=== PATIENT | female | born 1945 | race Caucasian/White ===

== ENCOUNTER → 2016-12-15 | Outpatient (CLI) | payer MEDICARE, OTHER ==
[~2016-12-15] MED LIST: AMLO10TA2 PO; AMLO5TAB2 PO; CELE-63 PO; ESTR0.5T3 PO; ESTR42.52; FLUO20CA25 PO; FLUO40CA; HYDR-3714 PO; HYDR1TAB PO; IRBE75TA31; METO-270 PO; METO25TA2 PO; NITR100C3 PO; PRED20TA PO; ZLP5T PO; ZOLP10TA5 PO
--- OUTSIDE RECORDS SUMMARY | 2016-12-15 13:27 | XMS REPORT | Continuity of Care Document ---
Author Author [facility] Organization [facility] Address Unknown Phone Unavailable Allergies Active Description Code Type Severity Reaction Onset Reported/Identified Relationship to Patient Clinical Status Yes levofloxacin [id number] Drug Allergy Mild N/A 04/07/2009 Yes Sulfa (Sulfonamide Antibiotics) [id number] Drug Allergy Mild N/A 04/07/2009 Medications Problems Date Dx Coded Attending Type Code Diagnosis Diagnosed By 04/07/2015 HENNA HELLER, ALEX T Ot 272.0 04/07/2015 HENNA HELLER, ALEX T Ot 401.9 04/07/2015 HENNA HELLER, ALEX T Ot 427.89 04/07/2015 HENNA HELLER, ALEX T Ot 786.50 04/07/2015 ALEX AGUILLON MD T Ot 786.59 09/30/2015 JA PERKINS DO Ot Z12.39 10/24/2015 JA PERKINS DO Ot Z12.31 Procedures Results Encounters ACCT No. Visit Date/Time Discharge Status Pt. Type Provider Facility Loc./Unit Complaint [id number] 09/18/2015 09:52:00 2014 23:59:59 CLS Outpatient JA PERKINS DO [facility] RAD [id number] 04/07/2015 17:31:00 2014 20:10:00 DIS Emergency ALEX AGUILLON MD [facility] ER [id number] 06/21/2014 08:40:00 2013 23:59:59 CLS Outpatient [id number] 01/02/2014 10:23:00 2013 23:59:59 CLS Outpatient [id number] 12/26/2013 08:34:00 2013 23:59:59 CLS Outpatient [id number] 04/06/2013 08:16:00 2012 14:05:00 DIS Outpatient [id number] 03/31/2013 10:16:00 2012 23:59:59 CLS Outpatient [id number] 03/30/2013 11:29:00 2012 23:59:59 CLS Outpatient [id number] 03/02/2013 10:23:00 2012 23:59:59 CLS Outpatient
--- NOTE | 2016-12-15 18:35 | Diagnostic Imaging Report ---
Digital mammogram bilateral screening The study was compared to the prior exams of 09/18/15, 06/21/14 and 03/02/13. At this time, there are no current complaints. The current study was also evaluated with a Computer Aided Detection (CAD) system. FINDINGS: The fibroglandular tissue in both breasts is dense. This does limit the sensitivity of this exam. Overall, there does not appear to have been any significant change when compared to the prior study. No primary or secondary sign of malignancy is noted. IMPRESSION: There is no radiographic evidence for malignancy. ACR BI-RADS Category 1: Negative. Result letter will be mailed to the patient. Note: At least 10% of breast cancer is not imaged by mammography. Dictated by: Dictated on workstation # [id number]
== END ==
LOC: RAD 10:03
PROVIDERS: ATTEND Family Medicine
DX: Z12.31 Encounter for screening mammogram for malignant neoplasm of breast (principal)
CPT/HCPCS: 77067

== ENCOUNTER → 2016-12-22 | Outpatient (CLI) | payer MEDICARE, OTHER ==
[~2016-12-22] MED LIST changes: +CATHETER FLUSH 10 ML SYR IV PRN; +IOHEXOL 350 MG/ML 100 ML (OMNIPAQUE 350) VIAL IV ONE; +NS 100 ML (IVPB) BAG IV ONE
--- OUTSIDE RECORDS SUMMARY | 2016-12-22 07:50 | XMS REPORT | Continuity of Care Document ---
Author Author [facility] Organization [facility] Address Unknown Phone Unavailable Allergies Active Description Code Type Severity Reaction Onset Reported/Identified Relationship to Patient Clinical Status Yes levofloxacin [id number] Drug Allergy Mild N/A 04/07/2009 Yes Sulfa (Sulfonamide Antibiotics) [id number] Drug Allergy Mild N/A 04/07/2009 Medications Problems Date Dx Coded Attending Type Code Diagnosis Diagnosed By 04/06/2013 CHARU HELLER, SAHARA Kee Ot 702.19 OTHER SEBORRHEIC KERATOSIS 04/07/2015 HENNA HELLER, ALEX Salguero Ot 272.0 PURE HYPERCHOLESTEROLEM 04/07/2015 ALEX AGUILLON MD Ot 401.9 HYPERTENSION NOS 04/07/2015 HENNA HELLER, ALEX Salguero Ot 427.89 CARDIAC DYSRHYTHMIAS NEC 04/07/2015 ALEX AGUILLON MD Ot 786.50 CHEST PAIN NOS 04/07/2015 HENNA HELLER, ALEX Salguero Ot 786.59 CHEST PAIN NEC 09/30/2015 JA PERKINS DO Ot Z12.39 10/24/2015 JA PERKINS DO Ot Z12.31 12/15/2016 JA PERKINS DO Ot 518.89 OTHER DISEASES OF LUNG, NEC 12/15/2016 JA PERKINS DO Ot V76.12 OTH SCREEN MAMMO-MALIGN NEOPLASM OF PARUL 12/15/2016 CHARU HELLER, SAHARA Kee Ot 709.9 SKIN DISORDER NOS 12/15/2016 CHARU HELLER, SAHARA Kee Ot V72.83 EXAM PRE-OPERATIVE NEC 12/15/2016 CHARU HELLER, SAHARA Kee Ot V74.8 SCREEN-BACTERIAL DIS NEC 12/15/2016 JA PERKINS DO Ot 786.6 CHEST SWELLING/MASS/LUMP 12/15/2016 JA PERKINS DO Ot 793.11 SOLITARY PULMONARY NODULE 12/15/2016 JA PERKINS DO Ot 793.11 SOLITARY PULMONARY NODULE 12/15/2016 MADDIE AVERY, JA Garcia Ot 793.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 Visit Date/Time Discharge Status Pt. Type Provider Facility Loc./Unit Complaint [id number] 09/18/2015 09:52:00 2014 23:59:59 CLS Outpatient PARULJA WHITLOCK DO [facility] RAD ROUTINE SCREENING [id number] 04/07/2015 17:31:00 2014 20:10:00 DIS Emergency HENNA HELLER, ALEX Salguero [facility] ER R SIDE CHEST-BACK PAIN [id number] 06/21/2014 08:40:00 2013 23:59:59 CLS Outpatient JA PERKINS DO [facility] RAD SCREENING,OSTEOPOROSIS [id number] 01/02/2014 10:23:00 2013 23:59:59 CLS Outpatient JA PERKINS DO [facility] RAD PULMONARY NODULE [id number] 12/26/2013 08:34:00 2013 23:59:59 CLS Outpatient JA PERKINS DO [facility] RAD 6 MONTH F/U PULMONARY NODULE [id number] 04/06/2013 08:16:00 2012 14:05:00 DIS Outpatient [facility]U [facility]LL[facility] QUADR[facility] AND BACK [id number] 03/31/2013 10:16:00 2012 23:59:59 CLS Outpatient JA PERKINS DO [facility] RAD FOLLOW UP ABNORMAL CT SCAN [id number] 03/30/2013 11:29:00 2012 23:59:59 CLS Outpatient SAHARA BOX MD [facility] PREOP SKIN LESIONS ON BACK AND UPPER RIGHT QUADRANT [id number] 03/02/2013 10:23:00 2012 23:59:59 CLS Outpatient JA PERKINS DO [facility] RAD HX OF SPOT ON LUNG LAST 6 MO ,SCREENING MAMMOGRAM [id number] 12/15/2016 10:03:00 ACT Outpatient JA PERKINS DO [facility] RAD SCREENING [id number] 12/15/2016 10:02:00 Document Registration
--- NOTE | 2016-12-22 12:38 | Diagnostic Imaging Report ---
PROCEDURE: CT chest with contrast only. TECHNIQUE: Multiple contiguous axial images were obtained through the chest after administration of intravenous contrast. INDICATION: Pulmonary nodule followup. CONTRAST: 75 mL of Omnipaque 350 is administered intravenously. FINDINGS: There is a pulmonary nodule measuring 2.7 x 2.6 cm in the left lower lobe. Inferior to the nodule, there is a small area of atelectasis or scarring, which could correspond to nodularity seen on 04/07/2015 exam. It is uncertain if this has developed at the site of the prior abnormality or adjacent to it. There is a satellite nodule measuring 8 mm at the level of the left hilum within the left lower lobe along the major fissure. There are calcified granulomas in the left hilum with some adjacent soft tissue component suggestive of adjacent pathologic lymphadenopathy of relatively small size. Larger lymph nodes are seen in the right paratracheal station measuring 1.8 x 2.8 x 3.3 cm. There is also an 8 mm prevascular lymph node and an indeterminate partially calcified infracarinal lymph node measuring 1.3 cm. This is not well from the esophagus but appears to be along its right side. The right lung demonstrates no significant consolidation, mass, or suspicious nodule. Calcified granuloma in the anterior aspect of the right lung base is seen. The pulmonary artery is slightly dilated which may correlate with pulmonary hypertension. The main pulmonary artery is 3.9 cm in caliber. The thoracic aorta is normal in caliber. The heart size is normal. No pericardial effusion. Cholecystectomy clips are seen in the upper abdomen. No adrenal nodule is seen. Mild degenerative changes in the thoracic spine noted. IMPRESSION: Suspicious 2.7 cm pulmonary nodule in the left lower lobe associated with a satellite nodule more anteriorly and superiorly in the left lower lobe and mediastinal lymphadenopathy including relatively large nodes in the right paratracheal station concerning for lung cancer. These lymph nodes may be accessible by bronchoscopy for tissue diagnosis. The findings were called and discussed with Dr. Marcum by Dr. Mcconnell at the time of dictation. Dictated by: Dictated on workstation # [id number]
== END ==
LOC: RAD 07:48
PROVIDERS: ATTEND Family Medicine
DX: R91.1 Solitary pulmonary nodule (principal)
CPT/HCPCS: 71260

== ENCOUNTER → 2017-01-05 | Outpatient (CLI) | payer MEDICARE, OTHER ==
[~2017-01-05] MED LIST changes: -CATHETER FLUSH 10 ML SYR IV PRN; -IOHEXOL 350 MG/ML 100 ML (OMNIPAQUE 350) VIAL IV ONE; -NS 100 ML (IVPB) BAG IV ONE
--- OUTSIDE RECORDS SUMMARY | 2017-01-05 12:39 | XMS REPORT | Continuity of Care Document ---
Author Author [facility] Organization [facility] Address Unknown Phone Unavailable Allergies Active Description Code Type Severity Reaction Onset Reported/Identified Relationship to Patient Clinical Status Yes levofloxacin [id number] Drug Allergy Mild N/A 04/07/2009 Yes Sulfa (Sulfonamide Antibiotics) [id number] Drug Allergy Mild N/A 04/07/2009 Medications Problems [...] 518.89 OTHER DISEASES OF LUNG, NEC 12/15/2016 AJ PERKINS DO Ot V76.12 OTH SCREEN MAMMO-MALIGN [...] DO Ot 793.11 SOLITARY PULMONARY NODULE 12/15/2016 [facility] Ot 793.11 SOLITARY PULMONARY NODULE 12/15/2016 [facility] Ot 733.90 BONE CARTILAGE DIS NOS 12/15/2016 MADDIE AVERY, JA Garcia Ot V76.12 OTH SCREEN MAMMO-MALIGN NEOPLASM OF PARUL 12/15/2016 MADDIE DO, JA Garica Ot Z12.31 ENCNTR SCREEN MAMMOGRAM FOR MALIGNANT NE 12/15/2016 MADDIE AVERY, JA Garcia Ot Z12.31 ENCNTR SCREEN MAMMOGRAM FOR MALIGNANT NE 12/16/2016 [facility] JA Garcia Ot Z12.31 ENCNTR SCREEN MAMMOGRAM FOR MALIGNANT NE 12/23/2016 MADDIE AVERY, JA Garcia Ot R91.1 SOLITARY PULMONARY NODULE Procedures Results Encounters ACCT No. Visit Date/Time Discharge Status Pt. Type Provider Facility Loc./Unit Complaint [id number] 09/18/2015 09:52:00 2014 23:59:59 CLS Outpatient MADDIE DO JA Jose [facility] RAD ROUTINE SCREENING [id number] 04/07/2015 17:31:00 2014 20:10:00 DIS Emergency HENNA HELLER, ALEX Salguero [facility] ER R SIDE CHEST-BACK PAIN [id number] 06/21/2014 08:40:00 2013 23:59:59 CLS Outpatient MADDIE AVERY JA Jose [facility] RAD SCREENING,OSTEOPOROSIS [id number] 01/02/2014 10:23:00 2013 23:59:59 CLS Outpatient MADDIE DO JA Jose [facility] RAD PULMONARY NODULE [id number] 12/26/2013 08:34:00 2013 23:59:59 CLS Outpatient JA PERKINS DO [facility] RAD 6 MONTH F/U PULMONARY NODULE [id number] 04/06/2013 08:16:00 2012 14:05:00 DIS Outpatient CHARU HELLER, SAHARA Kee [facility] SDC SKIN LESIONS ON RIGHT UPPER QUADRANT AND BACK [id number] 03/31/2013 10:16:00 2012 23:59:59 CLS Outpatient JA PERKINS DO [facility] RAD FOLLOW UP ABNORMAL CT SCAN [id number] 03/30/2013 11:29:00 2012 23:59:59 CLS Outpatient CHARU HELLER, SAHARA Kee [facility] PREOP SKIN LESIONS ON BACK AND UPPER RIGHT QUADRANT [id number] 03/02/2013 10:23:00 2012 23:59:59 CLS Outpatient JA PERKINS DO [facility] RAD HX OF SPOT ON LUNG LAST 6 MO ,SCREENING MAMMOGRAM [id number] 12/22/2016 07:48:00 ACT Outpatient JA PERKINS DO [facility] RAD PULMONARY NODULE LT LUNG BASE [id number] 12/15/2016 10:03:00 ACT Outpatient JA PERKINS DO [facility] RAD SCREENING [id number] 12/15/2016 10:02:00 Document Registration
--- NOTE | 2017-01-07 10:01 | Diagnostic Imaging Report ---
EXAMINATION: PET-CT. TECHNIQUE: Serum glucose level at the time of the study is: 95 mg/dL. 12.4 mCi of FDG was administered intravenously followed by obtaining PET images with corresponding noncontrast CT scan images. The CT scan was performed for anatomic correlation and attenuation correction and was not performed according to the diagnostic protocol of the areas covered. The scan was performed from the head to mid thighs. INDICATION: Left lower lobe lung mass. FINDINGS: There is a 2.4-cm left lower lobe nodule with intense hypermetabolism and maximum SUV of 13.7. This is associated with prominent left hilar hypermetabolic lymph nodes with maximum SUV of 11.6. There are also prominent mediastinal lymph nodes in the infracarinal and right paratracheal locations with maximum SUV of 11.4. There are also superior mediastinal hypermetabolic lymph nodes most prominent on the prevascular space abutting the anterior and left side aspect of the trachea. There is also a right supraclavicular hypermetabolic lymph node with SUV of 10.5 and measuring 1.2 cm in size. In the head and in the upper cervical chain, no suspicious hypermetabolism is seen. There is symmetric FDG uptake in the brain. In the abdomen and pelvis there is expected urinary tract excretion of the tracer with no suspicious mass. There is a tiny left pleural effusion and a hypodense lesion in the inferior aspect of the right hepatic lobe without associated FDG uptake probably benign such as a cyst. A large cyst in the left kidney is seen. IMPRESSION: Hypermetabolic 2.4-cm left lung base nodule with involved ipsilateral hilar, mediastinal, and right supraclavicular lymph node metastasis. The right supraclavicular lymph node could be utilized for tissue diagnosis if visible by ultrasound. Dictated by: Dictated on workstation # [id number]
== END ==
LOC: RAD 12:36
PROVIDERS: ATTEND Internal Medicine Critical Care Medicine
DX: R91.8 Other nonspecific abnormal finding of lung field (principal)

== ENCOUNTER → 2017-01-12 | Outpatient (CLI) | payer MEDICARE, OTHER | LOC: PREOP 14:34 | PROVIDERS: ATTEND Internal Medicine Critical Care Medicine | DX: Z01.818 Encounter for other preprocedural examination (principal); R91.8 Other nonspecific abnormal finding of lung field ==

== ENCOUNTER 2017-01-13 06:57 | Day surgery (SDC) | payer MEDICARE, OTHER ==
[~2017-01-13] VITALS: Ht 157.5 cm; Wt 86.2 kg
[~2017-01-13 06:57] MED LIST changes: -AMLO10TA2 PO; -CELE-63 PO; -FLUO20CA25 PO; -METO-270 PO; -ZOLP10TA5 PO
[2017-01-13] MEDS ORDERED: NS IV 1000 ML 1,000 ML IV STA (07:20)
[2017-01-13] MEDS ORDERED: NS IV 1000 ML 1,000 ML ONE (07:25)
[2017-01-13 07:35] VITALS: BP 197/85
--- NOTE | 2017-01-13 08:44 | Progress Note-Pre Operative ---
Pre-Operative Progress Note H&P Reviewed The H&P was reviewed, patient examined and no changes noted. Date H&P Reviewed: Jan 13, 2017 Time H&P Reviewed: 08:44 Pre-Operative Diagnosis: lung mass MARIBELL ESQUIVEL DO Jan 13, 2017 08:44
[2017-01-13] MEDS ORDERED: fentaNYL INJECTION 100 MCG/2 ML AMP ONE (08:52)
[2017-01-13] MEDS ORDERED: ONDANSETRON 4 MG/2 ML (SDV) Z0FRAN ONE (08:52)
[2017-01-13] MEDS ORDERED: LIDOCAINE PF 2% 10 ML (XYLOCAINE) AMP ONE (08:52)
[2017-01-13] MEDS ORDERED: SEVOFLURANE (ULTANE) 15 ML INHAL SOLN ONE ×2 (08:52→09:57)
[2017-01-13] MEDS ORDERED: proPOfol 200 MG/20 ML (DIPRIVAN) VIAL IV ONE (08:52)
[2017-01-13] MEDS ORDERED: ROCURONIUM 50 MG/5 ML (ZEMURON) VIAL IV ONE (08:58)
[2017-01-13] MEDS ORDERED: MIDAZOLAM 2 MG/2 ML (VERSED) VIAL ONE (09:03)
[2017-01-13] MEDS ORDERED: GLYCOPYRROLATE 0.2 MG/ML (ROBINUL) 2 ML VIAL ONE (09:24)
[2017-01-13] MEDS ORDERED: DEXAMETHASONE PF 10 MG/ML (DECADRON) VIAL ONE (09:46)
--- NOTE | 2017-01-13 10:25 | Pulmonary Procedures ---
Pulmonary Procedures Date of Procedure Date of Service: Jan 13, 2017 Bronch Bronchoscopy with EBUS with bx of station 7 and 4R lymph nodes Preop DX: mediastinal lymphadenopathy PostOP DX: mediastinal lymphadenopathy with endobronchial lesion NELDA - pic taken Complications: None Pt was sedated per anesthesia. Bronchoscopy was advanced through the ED tube and an anatomical undertaken down to the segmental bronchi bilaterally. endobronchial lesion noted NELDA BAL, brush and forcep bx taken from this area. EBUS was then advanced through ET tube and the mediastinum was US. Station [7] and [4R] lymph nodes were sampled via needle bx under US guidance. Pt tolerated procedure well. No complications noted. MARIBELL ESQUIVEL DO Jan 13, 2017 10:25
[2017-01-13 11:00] VITALS: BP 173/85
[2017-01-13 11:15] VITALS: BP 174/84
--- NOTE | 2017-01-13 11:24 | Diagnostic Imaging Report ---
Portable supine radiograph of the chest. INDICATION: Post bronchoscopy and Ebus. COMPARISON: 04/07/15. FINDINGS: There is a focal consolidation/nodule in the left lung base. Minimal left perihilar opacity is seen. The right lung demonstrate tiny nodular density in the base and minimal amount of fluid in the minor fissure. IMPRESSION: Left lung base nodule and mild perihilar and basilar infiltrates. Dictated by: Dictated on workstation # [id number]
[2017-01-13 12:08] VITALS: BP 174/84
--- OUTSIDE RECORDS SUMMARY | 2017-01-17 04:28 | XMS REPORT | Continuity of Care Document ---
Author Author [facility] Organization 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 [facility] Garcia Ot 793.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 [facility] JA Garcia Ot 733.90 BONE CARTILAGE DIS NOS 12/15/2016 MADDIE AVERY, JA Garcia Ot V76.12 OTH SCREEN MAMMO-MALIGN NEOPLASM OF PARUL 12/15/2016 MADDIE AVERY, JA Garcia Ot Z12.31 ENCNTR SCREEN MAMMOGRAM FOR MALIGNANT NE 12/15/2016 MADDIE AVERY, JA Garcia Ot Z12.31 ENCNTR SCREEN MAMMOGRAM FOR MALIGNANT NE 12/16/2016 [facility] Garcia Ot Z12.31 ENCNTR SCREEN MAMMOGRAM FOR MALIGNANT NE 12/23/[address] [facility] JA Garcia Ot R91.1 SOLITARY PULMONARY NODULE 01/06/2017 SIERRA AVERY MARIBELL Vidhya Ot R91.8 OTHER NONSPECIFIC ABNORMAL FINDING OF FIONA 01/08/2017 MADDIE AVERY, JA Garcia Ot Z12.31 ENCNTR SCREEN MAMMOGRAM FOR MALIGNANT NE Procedures Results Test Result Range Sputum Gram stain - 01/13/17 10:00 GRAM STAIN SPUTUM NO BACTERIA NRG Bacteria identification in bronchial specimen by aerobe culture - 01/13/17 10: 00 Bacteria identification in bronchial specimen by aerobe culture NG NRG Mycobacterium species detection by organism specific culture - 01/13/17 10:00 DATE/TIME MICROSCOPIC 01/14/17 17:00 NRG MICROSCOPIC NO ACID-FAST BACILLI FOUND NRG Encounters ACCT No. Visit Date/Time Discharge Status Pt. Type Provider Facility Loc./Unit Complaint [id number] 09/18/2015 09:52:00 2014 23:59:59 CLS Outpatient MADDIE AVERY JA Garcia [facility] RAD ROUTINE SCREENING [id number] 04/07/2015 17:31:00 2014 20:10:00 DIS Emergency HENNA HELLER, ALEX Salguero [facility] ER R SIDE CHEST-BACK PAIN [id number] 06/21/2014 08:40:00 2013 23:59:59 CLS Outpatient MADDIE AVERY JA Jose [facility] RAD SCREENING,OSTEOPOROSIS [id number] 01/02/2014 10:23:00 2013 23:59:59 CLS Outpatient JA PERKINS DO [facility] RAD PULMONARY NODULE [id number] 12/26/2013 08:34:00 2013 23:59:59 CLS Outpatient JA PERKINS DO [facility] RAD 6 MONTH F/U PULMONARY NODULE [id number] 04/06/2013 08:16:00 2012 14:05:00 DIS Outpatient CHARU HELLER, SAHARA Kee [facility] SDC SKIN LESIONS ON RIGHT UPPER QUADRANT AND BACK [id number] 03/31/2013 10:16:00 2012 23:59:59 CLS Outpatient JA PERKINS DO [facility] RAD FOLLOW UP ABNORMAL CT SCAN [id number] 03/30/2013 11:29:00 2012 23:59:59 CLS Outpatient SAHARA BOX MD [facility] PREOP SKIN LESIONS ON BACK AND UPPER RIGHT QUADRANT [id number] 03/02/2013 10:23:00 2012 23:59:59 CLS Outpatient JA PERKINS DO [facility] RAD HX OF SPOT ON LUNG LAST 6 MO ,SCREENING MAMMOGRAM [id number] 01/13/2017 08:45:00 Document Registration [id number] 01/12/2017 14:34:00 ACT Outpatient MARIBELL ESQUIVEL DO [facility] PREOP LUNG MASS [id number] 01/05/2017 12:36:00 ACT Outpatient MARIBELL ESQUIVEL DO [facility] RAD LUNG CANCER [id number] 12/22/2016 07:48:00 ACT Outpatient JA PERKINS DO [facility] RAD PULMONARY NODULE LT LUNG BASE [id number] 12/15/2016 10:03:00 ACT Outpatient JA PERKINS DO [facility] RAD SCREENING [id number] 12/15/2016 10:02:00 Document Registration
== END 2017-01-13 11:30 | disposition home or self-care (01) ==
LOC: DELPENDDIS → ENDO 06:57
PROVIDERS: ATTEND Internal Medicine Critical Care Medicine
DX: R59.0 Localized enlarged lymph nodes (principal); R91.8 Other nonspecific abnormal finding of lung field
CPT/HCPCS: 71010; 87070; 87101; 87116; 87205; 88112; 88305; 88312; 88341; 88342; 88344

== ENCOUNTER → 2017-01-19 | Outpatient (CLI) | payer MEDICARE, OTHER ==
[~2017-01-19] VITALS: Ht 157.5 cm; Wt 86.2 kg
[~2017-01-19] MED LIST changes: +AMLO10TA2 PO; +CELE-63 PO; +FLUO20CA25 PO; +LIDOCAINE 1% INJ 20 ML (XYLOCAINE) VIAL ONE; +METO-270 PO; +ZOLP10TA5 PO
--- NOTE | 2017-01-19 16:13 | Diagnostic Imaging Report ---
Ultrasound of the right neck region. INDICATION: Hypermetabolic lymph node seen on PET/CT. FINDINGS: There is a 3.9 x 1.9 x 1.6 cm hypoechoic lesion in the right supraclavicular region deep to the common carotid artery on the right side. This appears to be accessible for an ultrasound-guided biopsy. IMPRESSION: 3.9 cm supraclavicular lymph node mass posterior to the right common carotid artery accessible for ultrasound-guided biopsy. Dictated by: Dictated on workstation # [id number]
--- NOTE | 2017-01-19 17:02 | Diagnostic Imaging Report ---
EXAMINATION: US-guided core biopsy-neck. INDICATION: Right supraclavicular hypermetabolic enlarged lymph nodes. Patient has a positive bronchoscopy for cancer, however from more tissue is requested by pathology for further analysis. Current history and physical and other medical records are reviewed prior to the procedure. CONSENT: Informed consent was obtained from the patient. The risks, benefits, potential complications and alternatives were reviewed and all questions answered to the patient's satisfaction. The patient's vital signs, cardiac rhythm, and pulse oximetry with observed throughout the procedure by qualified nursing personnel. Sedation/medications: none. FINDINGS: Enlarged lymph node posterior to the right common carotid artery is seen in the supraclavicular station. PROCEDURE: After maximal sterile barrier technique preparation and draping, 1% lidocaine was utilized for local anesthesia. With the patient in supine position, and via anterior approach, a 17-gauge guide needle is introduced into the right supraclavicular enlarged lymph nodes under live ultrasound guidance. After confirming adequate positioning with saved ultrasound images, multiple 18 gauge core biopsy specimens were obtained. The patient tolerated the procedure well with no immediate complications. IMPRESSION: Successful US-guided core biopsy of right supraclavicular lymph node. Dictated by: Dictated on workstation # [id number]
== END ==
LOC: RAD 14:04
PROVIDERS: ATTEND Internal Medicine Critical Care Medicine
DX: R59.0 Localized enlarged lymph nodes (principal); C34.90 Malignant neoplasm of unspecified part of unspecified bronchus or lung; R91.8 Other nonspecific abnormal finding of lung field; E66.9 Obesity, unspecified
CPT/HCPCS: 76536; 76942; 81235; 88305; 88344; 88368; 88369; 88381

== ENCOUNTER 2017-02-03 15:50 | Observation (INO) | payer MEDICARE, OTHER ==
[~2017-02-03] VITALS: Ht 154.9 cm; Wt 80.7 kg
[2017-02-03] VITALS (10 sets, daily range): BP systolic 105–131; BP diastolic 55–100
[~2017-02-03 15:50] MED LIST changes: -AMLO10TA2 PO; -CELE-63 PO; -FLUO20CA25 PO; -LIDOCAINE 1% INJ 20 ML (XYLOCAINE) VIAL ONE; -METO-270 PO; -ZOLP10TA5 PO
[2017-02-03] MEDS ORDERED: RX-NITROGLYCERIN 0.4 MG TAB BTL 25'S SL PRN (16:00)
[2017-02-03] MEDS ORDERED: ASPIRIN 81 MG CHEW (CHILDREN'S ASA) PO ONE (16:00)
[2017-02-03] MEDS ORDERED: NITROGLYCERIN 2% OINT 1 GM UNIT DOSE PACKET TOP ONE (16:00)
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
--- NOTE | 2017-02-03 16:35 | Diagnostic Imaging Report ---
INDICATION: Chest pain. EXAMINATION: Portable chest at 4:26 PM. FINDINGS: The heart size and pulmonary vascularity are normal. The lungs are clear. There are no effusions or pneumothoraces. IMPRESSION: Negative chest. Dictated by: Dictated on workstation # [id number]
[2017-02-03 16:43] LABS: BASOPHILS # (AUTO) 0.1 10^3/uL (0.0-0.1); BASOPHILS % (AUTO) 1 % (0-10); EOSINOPHILS # (AUTO) 0.4 10^3/uL (0.0-0.3); EOSINOPHILS % (AUTO) 5 % (0-10); LYMPHOCYTES # (AUTO) 1.8 X 10^3 (1.0-4.0); LYMPHOCYTES % (AUTO) 21 % (12-44); MEAN CORPUSCULAR HEMOGLOBIN 31 PG (25-34); MEAN CORPUSCULAR HGB CONC 34 G/DL (32-36); MEAN CORPUSCULAR VOLUME 91 FL (80-99); MEAN PLATELET VOLUME 9.7 FL (7.4-10.4); MONOCYTES # (AUTO) 0.6 X 10^3 (0.0-1.0); MONOCYTES % (AUTO) 7 % (0-12); NEUTROPHILS # (AUTO) 5.7 X 10^3 (1.8-7.8); NEUTROPHILS % (AUTO) 67 % (42-75); PLATELET COUNT 256 10^3/uL (130-400); RED BLOOD COUNT 4.21 10^6/uL (4.35-5.85); RED CELL DISTRIBUTION WIDTH 12.8 % (10.0-14.5); WHITE BLOOD COUNT 8.5 10^3/uL (4.3-11.0)
[2017-02-03 16:55] LABS: INR 1.1 (0.8-1.4); PROTHROMBIN TIME PATIENT 13.8 SEC (12.2-14.7)
[2017-02-03] MEDS ORDERED: ENALAPRILAT 2.5 MG/2 ML (VASOTEC) VIAL IV ONE (17:00)
[2017-02-03] MEDS ORDERED: cloNIDine 0.2 MG (CATAPRES) TAB PO ONE (17:00)
[2017-02-03 17:07] LABS: ALANINE AMINOTRANSFERASE 18 U/L (0-55); ALBUMIN 3.7 G/DL (3.2-4.5); AMYLASE 65 U/L (25-125); ANION GAP 11 MMOL/L (5-14); ASPARTATE AMINO TRANSFERASE 25 U/L (5-34); BILIRUBIN,TOTAL 0.4 MG/DL (0.1-1.0); BLOOD UREA NITROGEN 12 MG/DL (7-18); BUN/CREATININE RATIO 17; CALCIUM 8.9 MG/DL (8.5-10.1); CARBON DIOXIDE 21 MMOL/L (21-32); CHLORIDE 109 MMOL/L (98-107); CREATINE KINASE 102 U/L (29-168); CREATININE SERUM 0.71 MG/DL (0.60-1.30); GFR ESTIMATED > 60; GLUCOSE 88 MG/DL (70-105); LIPASE 22 U/L (8-78); MAGNESIUM 2.1 MG/DL (1.8-2.4); SODIUM 141 MMOL/L (135-145); TOTAL PROTEIN 6.5 G/DL (6.4-8.2)
[2017-02-03 17:13] LABS: TROPONIN I < 0.30 NG/ML (<0.30)
[2017-02-03] MEDS ORDERED: NITROPRUSSIDE IV SCH ×2 (17:30→19:45)
[2017-02-03] MEDS ORDERED: NITROPRUSSIDE 50 MG/2 ML (NIPRIDE) VIAL IV ONE (17:30)
[2017-02-03] MEDS ORDERED: D5W IV SCH ×2 (17:30→19:45)
[2017-02-03] MEDS ORDERED: D5W 250 ML (IVPB) 250 ML IV ONE (17:31)
[2017-02-03] MEDS ORDERED: NS 100 ML (IVPB) BAG IV ONE (18:00)
[2017-02-03] MEDS ORDERED: IOHEXOL 350 MG/ML 150 ML (OMNIPAQUE 350) VIAL IV ONE (18:00)
--- NOTE | 2017-02-03 18:57 | Diagnostic Imaging Report ---
INDICATION: Elevated blood pressure, trouble breathing, shortness of air. EXAMINATION: CTA of the chest dated 02/03/2017. COMPARISON: 04/07/2015. FINDINGS: The pulmonary arteries demonstrate no central or proximal segmental pulmonary emboli. No definite pulmonary emboli seen on either side. The distal peripheral vessels in the left lower lobe are overall narrowed but an obvious pulmonary embolus is not appreciated. Narrowing of several of the left-sided pulmonary arteries, especially extending towards the left lower lobe, appear narrowed. They are surrounded by soft tissue density which is likely lymphadenopathy. This is a new finding from previous imaging. Although some of these appear to contain calcifications, the surrounding soft tissues which are new do not have calcifications. The largest conglomerate measures approximately 3 cm in greatest dimension. Lateral to this area, there is a lung lesion which measures 1.2 cm in greatest dimension. A few calcified nodules in the periphery of the left lung are noted. Airspace opacities in the lingula are noted, possibly atelectasis or even mild infiltrate. This should be followed to exclude any underlying masses. Within the left lower lobe there is a larger mass somewhat spiculated in appearance, measuring 3.1 x 3.4 cm. Within the right lung a few small scattered nodularities are noted too small to characteristic at this time. Increased linear markings for both lungs, likely areas of scar and/or atelectasis. Calcified granulomata in the medial anterior right lung is also noted. There is a very small left pleural effusion. Prominence in the right hilum could represent developing lymphadenopathy. The largest lesion measures 1.5 cm. There is a prominent lymph node in the subcarinal region which does contain calcifications. This measures approximately 2.8 cm in greatest dimension. Diffuse enlarged lymph nodes are seen within the precarinal region and AP window. These extend upwards into the upper mediastinum as well. Somewhat prominent lymph nodes in the supraclavicular region, bilaterally, are also noted. No axillary adenopathy is appreciated. There is a no pericardial effusion. The visualized upper abdomen demonstrates multiple hypodensities throughout the liver, most which are too small to characterize. Many of these are stable from previous imaging and, therefore, likely benign. Others are nonspecific and could be better characterized on a nonemergent dedicated CT imaging of the abdomen. A nodule in the left adrenal gland is stable. There is a small hiatal hernia. The osseous structures demonstrate no acute disease. IMPRESSION: 1. No definite pulmonary emboli are appreciated; however, narrowing of the left main and several lower lobe branches is noted due to a surrounding mass or lymphadenopathy. 2. Large masses in the left lung, highly suspicious for either primary and/or metastatic process. 3. Bilateral hilar adenopathy, left worse than right, with diffuse mediastinal adenopathy also noted. 4. Other incidental findings as discussed above. Dictated by: Dictated on workstation # [id number]
[2017-02-03] MEDS ORDERED: NITROGLYCERIN SUBLINGUAL 0.4 MG TAB (NITROSTAT) SL PRN (19:45)
[2017-02-03] MEDS ORDERED: CATHETER FLUSH 10 ML SYR IV PRN (19:45)
[2017-02-03] MEDS ORDERED: morphine INJ 4 MG/ML 1 ML (VIAL/SYRINGE) IV PRN (19:45)
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
[2017-02-03] MEDS ORDERED: ZOLPIDEM 5 MG (AMBIEN) TAB PO PRN (20:45)
[2017-02-03] MEDS ORDERED: PATIENT MAY USE OWN MEDS, ALL MC SCH (20:45)
[2017-02-03] MEDS: CATHETER FLUSH 10 ML SYR IV SCH (21:55)
[2017-02-03] MEDS: ENALAPRILAT 2.5 MG/2 ML (VASOTEC) VIAL IV SCH (22:40)
[2017-02-03 22:44] LABS: MYOGLOBIN SERUM 36.5 NG/ML (10.0-92.0)
[2017-02-04 01:00] VITALS: BP 117/57
[2017-02-04 02:00] VITALS: BP 120/57
[2017-02-04 03:00] VITALS: BP 117/59
[2017-02-04 04:00] VITALS: BP 117/56
[2017-02-04 04:12] LABS: BASOPHILS % (AUTO) 1 % (0-10); EOSINOPHILS # (AUTO) 0.4 10^3/uL (0.0-0.3); EOSINOPHILS % (AUTO) 5 % (0-10); LYMPHOCYTES # (AUTO) 1.4 X 10^3 (1.0-4.0); LYMPHOCYTES % (AUTO) 20 % (12-44); MEAN CORPUSCULAR HEMOGLOBIN 31 PG (25-34); MEAN CORPUSCULAR HGB CONC 34 G/DL (32-36); MEAN CORPUSCULAR VOLUME 91 FL (80-99); MEAN PLATELET VOLUME 9.8 FL (7.4-10.4); MONOCYTES # (AUTO) 0.6 X 10^3 (0.0-1.0); MONOCYTES % (AUTO) 8 % (0-12); NEUTROPHILS # (AUTO) 4.8 X 10^3 (1.8-7.8); NEUTROPHILS % (AUTO) 67 % (42-75); PLATELET COUNT 219 10^3/uL (130-400); RED BLOOD COUNT 3.85 10^6/uL (4.35-5.85); RED CELL DISTRIBUTION WIDTH 12.9 % (10.0-14.5); WHITE BLOOD COUNT 7.2 10^3/uL (4.3-11.0)
[2017-02-04 04:34] LABS: ALANINE AMINOTRANSFERASE 13 U/L (0-55); ALBUMIN 3.3 G/DL (3.2-4.5); ANION GAP 12 MMOL/L (5-14); ASPARTATE AMINO TRANSFERASE 15 U/L (5-34); BILIRUBIN,TOTAL 0.5 MG/DL (0.1-1.0); BLOOD UREA NITROGEN 12 MG/DL (7-18); BUN/CREATININE RATIO 17; CALCIUM 8.2 MG/DL (8.5-10.1); CARBON DIOXIDE 19 MMOL/L (21-32); CHLORIDE 110 MMOL/L (98-107); CHOLESTEROL 214 MG/DL (< 200); CREATININE SERUM 0.72 MG/DL (0.60-1.30); DIRECT LDL 155 MG/DL (1-129); GFR ESTIMATED > 60; GLUCOSE 88 MG/DL (70-105); MAGNESIUM 1.8 MG/DL (1.8-2.4); PHOSPHORUS 3.9 MG/DL (2.3-4.7); POTASSIUM 3.7 MMOL/L (3.6-5.0); SODIUM 141 MMOL/L (135-145); TOTAL PROTEIN 5.4 G/DL (6.4-8.2); TRIGLYCERIDES 109 MG/DL (<150); VLDL CHOLESTEROL 22 MG/DL (5-40)
[2017-02-04 05:00] VITALS: BP 117/49
[2017-02-04] MEDS: ENALAPRILAT 2.5 MG/2 ML (VASOTEC) VIAL IV SCH (05:00)
[2017-02-04] MEDS: NITROGLYCERIN 2% OINT 1 GM UNIT DOSE PACKET TOP SCH ×2 (05:35)
[2017-02-04 06:00] VITALS: BP 110/48
[2017-02-04] MEDS ORDERED: KCL 20 MEQ TAB (K-DUR) PO SCH (06:00)
[2017-02-04] MEDS ORDERED: MAGNESIUM 1 GM/100 ML IVPB 100 ML IV SCH (06:00)
[2017-02-04] MEDS ORDERED: POTASSIUM CL 10MEQ/50ML IVPB 50 ML IV SCH (06:00)
[2017-02-04] MEDS: CATHETER FLUSH 10 ML SYR IV SCH (06:12)
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
--- NOTE | 2017-02-04 07:58 | Diagnostic Imaging Report ---
INDICATION: Chest pain. Uncontrolled hypertension. COMPARISON: 02/03/2017 FINDINGS: Single frontal view of the chest demonstrates normal heart size and pulmonary vascularity. The lungs are well aerated and clear. No large pleural effusion or pneumothorax is seen. The visualized osseous structures show no acute abnormalities. IMPRESSION: 1. No acute cardiopulmonary process. Dictated by: Dictated on workstation # [id number]
[2017-02-04] MEDS ORDERED: ENOXAPARIN 40 MG/0.4 ML (LOVENOX) SYR SC SCH (08:28)
[2017-02-04] MEDS ORDERED: ASPIRIN E.C. 325 MG (ECOTRIN) TABLET PO SCH (09:00)
--- NOTE | 2017-02-04 09:26 | Cardiology Progress Note ---
Cardiology SOAP Progress Note Subjective: No further chest pain. Blood pressure is much better controlled. Objective: I&O/Vital Signs Vital Sign - Last 12Hours 02/04/17 02/04/17 02/04/17 02/04/17 04:00 05:00 06:00 07:00 Pulse 42 45 43 45 Resp 17 18 19 B/P (MAP) 117/56 117/49 110/48 Pulse Ox 90 90 91 O2 Delivery Room Air Room Air Room Air Weight (Pounds): 178 Weight (Ounces): 0.0 Weight (Calculated Kilograms): 80.570008 Constitutional: No appears stated age, No AAO x 3, No apparent distress, No PERRL, No well-developed, No well-nourished, No other Respiratory: No accessory muscle use, No respiratory distress, No chest tender , No chest expansion is symmetric, No chest is bilaterally symmetric, No lungs clear to percussion, No lungs clear to auscultation, No crackles, No rhonchi, No rales, No stridor, No wheezing, No pleural rub, No other Cardiovascular: No regular rate-rhythm, No irregularly irregular, No extra beats, No parasternal heave is noted, No JVD, No edema, No bradycardia, No tachycardia, No point of maximal impulse, No cardiac thrills are palpable, No S1 and S2, No gallop/S3, No gallop/S4, No diastolic murmur, No systolic murmur, No friction rub, No click, No other Gastrointestional: No tender, No soft, No round, No distended, No pulsatile mass, No organomegaly, No guarding, No rebound, No tenderness, No hernia, No mass, No audible bowel sounds, No abnormal bowel sounds, No abdominal bruits, No spleenomegaly, No other Extremities: No normal range of motion, No non-tender, No normal inspection, No pedal edema, No calf tenderness, No normal capillary refill, No pelvis stable , No calf tenderness, No inflammation, No pedal edema, No slow capillary refill , No swelling, No other, No abrasion, No clubbing, No cyanosis, No ecchymosis, No laceration, No no lower extremity edema bilateral, No significant edema, No tenderness, No wound Neurologic/Psychiatric: No optical technician II-XII nml as tested, No no motor/sensory deficits, No alert, No normal mood/affect, No oriented x 3, No abnormal cerebellar tests, No abnormal optical technician II-XII, No abnormal gait, No aphasia, No EOM palsy, No facial droop, No motor weakness, No sensory deficit, No depressed affect, No disoriented x 3, No other, No grossly intact, No power is 5/5 both on sides Skin: No normal color, No warm/dry, No cyanosis, No cool, No diaphoresis, No damp, No ecchymosis, No jaundice, No mottled, No pallor, No rash, No tattoos/ piercings, No ulcerations, No rash on exposed areas, No ulcerations on exposed areas, No other Results/Procedures: Labs Laboratory Tests 02/03/17 16:35: White Blood Count 8.5, Red Blood Count 4.21L, Hemoglobin 13.1, Hematocrit 38, Mean Corpuscular Volume 91, Mean Corpuscular Hemoglobin 31, Mean Corpuscular Hemoglobin Concent 34, Red Cell Distribution Width 12.8, Platelet Count 256, Mean Platelet Volume 9.7, Neutrophils (%) (Auto) 67, Lymphocytes (%) (Auto) 21, Monocytes (%) (Auto) 7, Eosinophils (%) (Auto) 5, Basophils (%) (Auto) 1, Neutrophils # (Auto) 5.7, Lymphocytes # (Auto) 1.8, Monocytes # (Auto) 0.6, Eosinophils # (Auto) 0.4H, Basophils # (Auto) 0.1, Prothrombin Time 13.8, INR Comment 1.1, Activated Partial Thromboplast Time 26, Sodium Level 141, Potassium Level 4.0, Chloride Level 109H, Carbon Dioxide Level 21, Anion Gap 11 , Blood Urea Nitrogen 12, Creatinine 0.71, Estimat Glomerular Filtration Rate > 60, BUN/Creatinine Ratio 17, Glucose Level 88, Calcium Level 8.9, Magnesium Level 2.1, Total Bilirubin 0.4, Aspartate Amino Transf (AST/SGOT) 25, Alanine Aminotransferase (ALT/SGPT) 18, Alkaline Phosphatase 82, Total Creatine Kinase 102, Creatine Kinase MB 1.3, Troponin I < 0.30, B-Type Natriuretic Peptide 78.7 , Total Protein 6.5, Albumin 3.7, Amylase Level 65, Lipase 22 02/03/17 22:00: Troponin I < 0.30, Myoglobin 36.5 02/04/17 03:45: White Blood Count 7.2, Red Blood Count 3.85L, Hemoglobin 11.8, Hematocrit 35, Mean Corpuscular Volume 91, Mean Corpuscular Hemoglobin 31, Mean Corpuscular Hemoglobin Concent 34, Red Cell Distribution Width 12.9, Platelet Count 219, Mean Platelet Volume 9.8, Neutrophils (%) (Auto) 67, Lymphocytes (%) (Auto) 20, Monocytes (%) (Auto) 8, Eosinophils (%) (Auto) 5, Basophils (%) (Auto) 1, Neutrophils # (Auto) 4.8, Lymphocytes # (Auto) 1.4, Monocytes # (Auto) 0.6, Eosinophils # (Auto) 0.4H, Basophils # (Auto) 0.0, Sodium Level 141, Potassium Level 3.7, Chloride Level 110H, Carbon Dioxide Level 19L, Anion Gap 12, Blood Urea Nitrogen 12, Creatinine 0.72, Estimat Glomerular Filtration Rate > 60, BUN/ Creatinine Ratio 17, Glucose Level 88, Calcium Level 8.2L, Magnesium Level 1.8, Total Bilirubin 0.5, Aspartate Amino Transf (AST/SGOT) 15, Alanine Aminotransferase (ALT/SGPT) 13, Alkaline Phosphatase 71, Total Protein 5.4L, Albumin 3.3, Phosphorus Level 3.9, Triglycerides Level 109, Cholesterol Level 214H, LDL Cholesterol Direct 155H, VLDL Cholesterol 22, HDL Cholesterol 39L A/P: Assessment/Dx: hypertensive crisis, chest pain, lung cancer Plan: BP is much better controlled. We'll start her on amlodipine 10 mg. Sinus bradycardia due to beta blockers. We will discontinue beta blockers. chest pain - acute coronary syndrome ruled out with negative EKG and serial troponin. She may need pharmacological nuclear stress test as an outpatient. I will arrange for an outpatient cardiology follow-up in the office in 7-[address] angio did not reveal any central PE or aortic dissection. Thank you for your consultation. Please call me if you have any questions. Richard Matos MD, FACP, FACC, FSCAI, FHRS, CCDS Interventional Cardiology Cardiac Electrophysiology Vascular Medicine and Endovascular Interventions Clinical Quality Measures AMI/AHF: ASA po Prior to arrival: Vidhya Ramey MD Feb 04, 2017 9:26 am
[2017-02-04] MEDS ORDERED: ZOLP10TA5 PO (10:13)
[2017-02-04] MEDS ORDERED: CELE-63 PO (10:14)
[2017-02-04] MEDS ORDERED: FLUO20CA25 PO (10:14)
[2017-02-04] MEDS ORDERED: METO-270 PO (10:14)
[2017-02-04] MEDS ORDERED: amLODIPine 5 MG (NORVASC) TAB PO SCH (12:00)
[2017-02-04] MEDS ORDERED: amLODIPine 10 MG (NORVASC) TAB ONE (12:11)
[2017-02-04] MEDS ORDERED: ACETAMINOPHEN 325 MG TABLET/CAPLET (TYLENOL) ONE (12:12)
[2017-02-04] MEDS ORDERED: ACETAMINOPHEN 500 MG TAB (TYLENOL) PO PRN (12:15)
[2017-02-04] MEDS ORDERED: AMLO10TA2 PO (15:46)
--- NOTE | 2017-02-05 06:46 | ECHOCARDIOGRAPHY REPORT ---
DATE OF SERVICE: 2D ECHOCARDIOGRAM REPORT DATE OF SERVICE: 02/04/2017 ATTENDING PHYSICIAN: Dr. Bran Marcum. DIAGNOSIS: Chest pain, uncontrolled hypertension. FINDINGS: 1. Sinus rhythm. 2. Left atrial dimensions are normal. 3. Aortic root dimension is normal. 4. Left ventricular systolic function is hyperdynamic. Left ventricular ejection fraction is 75-80%. No LVH is present. 5. Normal wall motion. 6. Right heart function and size is normal. 7. There is no evidence of pericardial effusion. 8. There is mild diastolic dysfunction. 9. IVC is normal. VALVULAR STRUCTURES OF THE HEART There is trace pulmonic insufficiency and mild tricuspid regurgitation. RVSP is 29 mmHg. Mild mitral regurgitation is present. There is no aortic valve pathology. CONCLUSION: 1. Left ventricle is hyperdynamic with an ejection fraction of 80%. 2. Right ventricular size and function is normal. 3. There is no left ventricular hypertrophy. 4. There is no significant valvular heart disease. 5. There is mild diastolic dysfunction. 6. Pulmonary artery pressure is normal with PA pressure of 29 mmHg. Job ID: [id number] DocumentID: [id number] Dictated Date: 02/04/2017 14:53:28 Invoice Machine Operator Date: 02/04/2017 15:55:47 Dictated By: LENY KING MD
[2017-02-05] MEDS ORDERED: lisINopril 20 MG (ZESTRIL) TAB PO SCH (09:00)
[2017-02-05] MEDS ORDERED: amLODIPine 10 MG (NORVASC) TAB PO SCH (09:00)
== END 2017-02-04 15:39 | disposition home or self-care (01) ==
LOC: EDUNIT# 15:50 → ER 15:53 → ICU 17:25 → UNDOADMOB 17:25 → ICU 19:08 → UNDODISOB 02-04 15:55
PROVIDERS: ADMIT Family Medicine; ATTEND Family Medicine
DX: I16.9 Hypertensive crisis, unspecified (principal); I10 Essential (primary) hypertension; R07.9 Chest pain, unspecified; C34.92 Malignant neoplasm of unspecified part of left bronchus or lung; F43.0 Acute stress reaction; E78.5 Hyperlipidemia, unspecified; R00.1 Bradycardia, unspecified; T44.7X5A Adverse effect of beta-adrenoreceptor antagonists, initial encounter
CPT/HCPCS: 36415; 71010; 71275; 80053; 80061; 82150; 82550; 82553; 83690; 83735; 83874; 83880; 84100; 84484; 85025; 85610; 85730; 93005; 93041; 93306; 96374; G0378

== ENCOUNTER → 2017-02-04 | Outpatient (CLI) | payer MEDICARE, OTHER ==
[~2017-02-04] MED LIST changes: +AMLO10TA2 PO; +CELE-63 PO; +FLUO20CA25 PO; +GADOBUTROL 10 MMOL/10 ML (GADAVIST) VIAL IV ONE; +METO-270 PO; +ZOLP10TA5 PO
--- NOTE | 2017-02-04 17:35 | Diagnostic Imaging Report ---
PROCEDURE: MR imaging of the brain with and without contrast. TECHNIQUE: Multiplanar, multisequence MR imaging of the brain was performed with and without contrast. INDICATION: Lung cancer. Uncontrolled blood pressure. 8 mL of Gadovist is administered intravenously. FINDINGS: There is no diffusion restriction to suggest an acute infarct or other diffusion abnormality. The brain parenchyma demonstrates periventricular and deep white matter T2 hyperintense lesions compatible with chronic microvascular ischemic changes with no enhancement. No enhancing nodule or mass is seen to suggest metastatic disease. There are central vascular flow voids noted. The internal auditory canals and inner ear structures appear grossly unremarkable. The pituitary gland is normal in size. No hypothalamic or pineal region mass. No hydrocephalus or extra-axial fluid collection. No extra-axial mass is identified. The orbits, the calvarium and upper cervical spine bone marrow appears unremarkable. There is mild mucosal thickening in the ethmoidal air cells. There is incidental note of flattening of the anterior left margin of the medulla oblongata that appears to be related to a prominent dominant left vertebral artery passage in this region. This is most commonly asymptomatic. There is no associated edema or signal change in the brainstem seen. IMPRESSION: No evidence of metastatic disease. Dictated by: Dictated on workstation # [id number]
== END ==
LOC: RAD 16:03
PROVIDERS: ATTEND Internal Medicine Hematology & Oncology
DX: C34.90 Malignant neoplasm of unspecified part of unspecified bronchus or lung (principal)
CPT/HCPCS: 70553

== ENCOUNTER → 2017-03-31 | Outpatient (CLI) | payer MEDICARE, OTHER ==
[~2017-03-31] MED LIST changes: -GADOBUTROL 10 MMOL/10 ML (GADAVIST) VIAL IV ONE
== END ==
LOC: LAB 11:20
PROVIDERS: ATTEND Family Medicine
DX: N39.0 Urinary tract infection, site not specified (principal)

== ENCOUNTER → 2017-04-09 | Outpatient (CLI) | payer MEDICARE, OTHER | LOC: LAB 08:41 | PROVIDERS: ATTEND Family Medicine | DX: N39.0 Urinary tract infection, site not specified (principal) | CPT/HCPCS: 87077; 87088; 87186 ==

== ENCOUNTER 2017-04-13 12:56 | Outpatient (RCR) | payer MEDICARE, OTHER ==
[2017-03-04 13:55] LABS: BASOPHILS % (AUTO) 1 % (0-10); EOSINOPHILS % (AUTO) 5 % (0-10); LYMPHOCYTES # (AUTO) 1.7 X 10^3 (1.0-4.0); LYMPHOCYTES % (AUTO) 21 % (12-44); MEAN CORPUSCULAR HEMOGLOBIN 30 PG (25-34); MEAN CORPUSCULAR HGB CONC 34 G/DL (32-36); MEAN CORPUSCULAR VOLUME 91 FL (80-99); MEAN PLATELET VOLUME 8.9 FL (7.4-10.4); MONOCYTES # (AUTO) 0.5 X 10^3 (0.0-1.0); MONOCYTES % (AUTO) 7 % (0-12); NEUTROPHILS # (AUTO) 5.5 X 10^3 (1.8-7.8); NEUTROPHILS % (AUTO) 68 % (42-75); PLATELET COUNT 297 10^3/uL (130-400); RED BLOOD COUNT 4.05 10^6/uL (4.35-5.85); WHITE BLOOD COUNT 8.1 10^3/uL (4.3-11.0)
[2017-03-04 13:56] LABS: BASOPHILS # (AUTO) 0.1 10^3/uL (0.0-0.1); EOSINOPHILS # (AUTO) 0.4 10^3/uL (0.0-0.3)
[2017-03-04 14:30] LABS: ALANINE AMINOTRANSFERASE 27 U/L (0-55); ALBUMIN 3.7 G/DL (3.2-4.5); ANION GAP 7 MMOL/L (5-14); ASPARTATE AMINO TRANSFERASE 22 U/L (5-34); BILIRUBIN,TOTAL 0.2 MG/DL (0.1-1.0); BLOOD UREA NITROGEN 12 MG/DL (7-18); BUN/CREATININE RATIO 16; CALCIUM 8.9 MG/DL (8.5-10.1); CARBON DIOXIDE 22 MMOL/L (21-32); CHLORIDE 110 MMOL/L (98-107); CREATININE SERUM 0.73 MG/DL (0.60-1.30); GFR ESTIMATED > 60; GLUCOSE 92 MG/DL (70-105); MAGNESIUM 1.9 MG/DL (1.8-2.4); SODIUM 139 MMOL/L (135-145); TOTAL PROTEIN 6.2 G/DL (6.4-8.2)
--- NOTE | 2017-03-04 16:37 | Diagnostic Imaging Report ---
INDICATION: Lung cancer. COMPARISON STUDY: Chest from February 04. FINDINGS: Frontal and lateral views of the chest demonstrate some haziness along the left heart border which was present previously. A CT scan demonstrated a mass in the left lung and this region. Heart size and vascularity are normal. There are no visible effusions. IMPRESSION: A left lung mass is again identified. No acute findings are present. Dictated by: Dictated on workstation # [id number]
[2017-03-18 14:17] LABS: BASOPHILS # (AUTO) 0.1 10^3/uL (0.0-0.1); BASOPHILS % (AUTO) 1 % (0-10); EOSINOPHILS # (AUTO) 0.2 10^3/uL (0.0-0.3); EOSINOPHILS % (AUTO) 3 % (0-10); LYMPHOCYTES # (AUTO) 1.7 X 10^3 (1.0-4.0); LYMPHOCYTES % (AUTO) 23 % (12-44); MEAN CORPUSCULAR HEMOGLOBIN 31 PG (25-34); MEAN CORPUSCULAR HGB CONC 34 G/DL (32-36); MEAN CORPUSCULAR VOLUME 92 FL (80-99); MEAN PLATELET VOLUME 9.7 FL (7.4-10.4); MONOCYTES # (AUTO) 0.7 X 10^3 (0.0-1.0); MONOCYTES % (AUTO) 9 % (0-12); NEUTROPHILS # (AUTO) 4.8 X 10^3 (1.8-7.8); NEUTROPHILS % (AUTO) 65 % (42-75); PLATELET COUNT 298 10^3/uL (130-400); WHITE BLOOD COUNT 7.5 10^3/uL (4.3-11.0)
[2017-03-18 14:34] LABS: ALANINE AMINOTRANSFERASE 24 U/L (0-55); ALBUMIN 3.6 G/DL (3.2-4.5); ANION GAP 8 MMOL/L (5-14); ASPARTATE AMINO TRANSFERASE 19 U/L (5-34); BILIRUBIN,TOTAL 0.2 MG/DL (0.1-1.0); BLOOD UREA NITROGEN 13 MG/DL (7-18); BUN/CREATININE RATIO 17; CALCIUM 8.7 MG/DL (8.5-10.1); CARBON DIOXIDE 21 MMOL/L (21-32); CHLORIDE 109 MMOL/L (98-107); CREATININE SERUM 0.78 MG/DL (0.60-1.30); GFR ESTIMATED > 60; GLUCOSE 104 MG/DL (70-105); POTASSIUM 4.1 MMOL/L (3.6-5.0); SODIUM 138 MMOL/L (135-145); TOTAL PROTEIN 6.2 G/DL (6.4-8.2)
[2017-04-08 14:51] LABS: BASOPHILS # (AUTO) 0.1 10^3/uL (0.0-0.1); BASOPHILS % (AUTO) 1 % (0-10); EOSINOPHILS # (AUTO) 0.2 10^3/uL (0.0-0.3); EOSINOPHILS % (AUTO) 3 % (0-10); LYMPHOCYTES # (AUTO) 1.4 X 10^3 (1.0-4.0); LYMPHOCYTES % (AUTO) 21 % (12-44); MEAN CORPUSCULAR HEMOGLOBIN 31 PG (25-34); MEAN CORPUSCULAR HGB CONC 34 G/DL (32-36); MEAN CORPUSCULAR VOLUME 92 FL (80-99); MEAN PLATELET VOLUME 9.8 FL (7.4-10.4); MONOCYTES # (AUTO) 0.5 X 10^3 (0.0-1.0); MONOCYTES % (AUTO) 8 % (0-12); NEUTROPHILS # (AUTO) 4.6 X 10^3 (1.8-7.8); NEUTROPHILS % (AUTO) 67 % (42-75); PLATELET COUNT 303 10^3/uL (130-400); RED BLOOD COUNT 4.07 10^6/uL (4.35-5.85); RED CELL DISTRIBUTION WIDTH 13.4 % (10.0-14.5); WHITE BLOOD COUNT 6.8 10^3/uL (4.3-11.0)
[2017-04-08 15:12] LABS: ALANINE AMINOTRANSFERASE 43 U/L (0-55); ALBUMIN 3.5 GM/DL (3.2-4.5); ANION GAP 7 MMOL/L (5-14); ASPARTATE AMINO TRANSFERASE 32 U/L (5-34); BILIRUBIN,TOTAL 0.3 MG/DL (0.1-1.0); BLOOD UREA NITROGEN 14 MG/DL (7-18); BUN/CREATININE RATIO 16 (0-20); CALCIUM 8.4 MG/DL (8.5-10.1); CARBON DIOXIDE 21 MMOL/L (21-32); CHLORIDE 111 MMOL/L (98-107); CREATININE SERUM 0.89 MG/DL (0.60-1.30); GFR ESTIMATED > 60; GLUCOSE 91 MG/DL (70-105); SODIUM 139 MMOL/L (135-145); TOTAL PROTEIN 5.2 GM/DL (6.4-8.2)
== END 2017-05-04 | disposition home or self-care (01) ==
LOC: ONC 12:56
PROVIDERS: ATTEND Internal Medicine Hematology & Oncology
DX: C34.32 Malignant neoplasm of lower lobe, left bronchus or lung (principal); C77.1 Secondary and unspecified malignant neoplasm of intrathoracic lymph nodes; C77.3 Secondary and unspecified malignant neoplasm of axilla and upper limb lymph nodes; K52.1 Toxic gastroenteritis and colitis; T45.1X5A Adverse effect of antineoplastic and immunosuppressive drugs, initial encounter; I10 Essential (primary) hypertension; E66.9 Obesity, unspecified; Z68.32 Body mass index [BMI] 32.0-32.9, adult; Z79.899 Other long term (current) drug therapy
CPT/HCPCS: 36415; 71020; 80053; 83735; 85025; 93005; 99213; 99214

== ENCOUNTER → 2017-05-06 | Outpatient (CLI) | payer MEDICARE, OTHER | LOC: LAB 12:32 | PROVIDERS: ATTEND Family Medicine | DX: N39.0 Urinary tract infection, site not specified (principal) | CPT/HCPCS: 87088 ==

== ENCOUNTER → 2017-06-03 | Outpatient (CLI) | payer MEDICARE, OTHER ==
[~2017-06-03] MED LIST changes: +AMOX500T2 PO; +BENZ-13 PO; +CATHETER FLUSH 10 ML SYR IV PRN; +CEFD300C3 PO; +DOXY100C42 PO; +GUAI237L82 PO; +METH4TAB PO; -METO-270 PO; +METO-387 PO; +MONT10TA24 PO; +OLME20TA24 PO; +ONDA4TAB8 PO; +SERT100T8 PO; +[UNRECOGNIZED DRUG - CODE] PO
--- NOTE | 2017-06-03 16:47 | Diagnostic Imaging Report ---
Whole body bone scan. Technique: After the intravenous administration of 23.7 mCi of Technetium 99m MDP, whole body delayed phase bone scan images were obtained with lateral views of the head and neck and the chest regions. Indication: Lung cancer Findings: There is mild increased radiotracer uptake in the mid thoracic spine. When correlated with CT scan, there are prominent syndesmophytes and degenerative changes. There are mild other areas of increased uptake such as SI joints, cervical spine, and other joints in a pattern suggestive of degenerative disease. There are no suspicious intense foci of activity particularly within the axial skeleton in a pattern to suggest metastatic disease. There is higher uptake seen in the right kidney compared to the left and normal bladder activity noted. IMPRESSION: No scintigraphic evidence of an osseous metastasis. Dictated by: Dictated on workstation # [id number]
== END ==
LOC: CARD 11:09
PROVIDERS: ATTEND Nurse Practitioner Adult Health
DX: C34.32 Malignant neoplasm of lower lobe, left bronchus or lung (principal)
CPT/HCPCS: 78306

== ENCOUNTER → 2017-06-03 | Outpatient (CLI) | payer MEDICARE, OTHER ==
[~2017-06-03] MED LIST changes: +BARIUM SUSPENSION 2.1% (VANILLA SILQ) 450 ML PO ONE; +IOHEXOL 350 MG/ML 100 ML (OMNIPAQUE 350) VIAL IV ONE
--- NOTE | 2017-06-03 17:54 | Diagnostic Imaging Report ---
CT scan of the neck, chest, and abdomen performed with intravenous contrast. INDICATION: Lung cancer. 100 mL of Omnipaque-350 is administered intravenously. COMPARISON: 01/05/2017 PET/CT and CT chest of 02/03/2017. FINDINGS: CT neck: There is a right supraclavicular lymph node measuring 2.5 x 1.6 cm. This was not well seen on previous CT scan and PET/CT and size comparison is difficult although it appears more prominent compared to the localizer CT associated with PET from 01/05/2017. A 1 x 1 cm left supraclavicular lymph node is larger compared to the prior study when it measured 8 mm. In the mid and upper neck, there are no significantly enlarged lymph nodes identified. The carotid and jugular veins demonstrate normal vascular enhancement. The paranasal sinuses appear grossly unremarkable. The mucosal pharyngeal space appears unremarkable. CT chest: There is interval decrease in the size of previously seen right paratracheal lymph nodes now measuring up to 1 cm in short axis compared to 1.7 cm when measured in a similar fashion on 02/03/2017. There is also less number of enlarged lymph nodes in the right paratracheal station. The aortopulmonary window node measuring 9 mm is comparable to the previous study. There is a left hilar mass demonstrating interval decrease in size. This is encasing the right lower lobe branch of the pulmonary artery and is still causing severe stenosis of this branch. There is peribronchial thickening also noted. The associated soft tissue mass however overall size is smaller now measuring about 2.1 x 1.5 cm compared to 2.5 x 2.7 cm. The distal peribronchial soft tissue thickening could be from atelectasis or neoplasm. The lungs demonstrate nonspecific groundglass opacities with a nodule in the left lower lobe measuring 1.5 cm demonstrating decrease in size compared to 2.3 cm previously. No suspicious nodule in the right lung. The heart size is mildly enlarged. No pericardial effusion. No pleural effusion. The thoracic aorta is normal in caliber. The osseous structures demonstrate mild degenerative changes with no suspicious mass. CT abdomen: The liver, the spleen, the pancreas, and the right adrenal gland appear unremarkable. The left adrenal gland demonstrates a nodule measuring 2.1 x 1.4 cm. This is larger compared to prior exam of 02/03/2017 when it measures 1.7 x 1.2 cm. The kidneys have symmetric contrast enhancement and excretion. There is no hydronephrosis. The abdominal aorta is normal in caliber. No para-aortic significantly enlarged lymph node is seen. The osseous structures appear grossly unremarkable. IMPRESSION: CT neck: There are bilateral supraclavicular lymph nodes difficult to compare precisely on the prior localizer CT and CT chest but appear to be slightly larger at this time. CT chest: 1. The previously seen mediastinal and left hilar lymph nodes are smaller in size at this time. 2. There is still a 1.5 cm left infrahilar nodule or lymph node encasing and severely narrowing the left lower lobe pulmonary artery. 3. Improvement in the left lower lobe 1.6 cm nodule compared to prior measurement of 2.[address] abdomen: Interval mild enlargement in left adrenal nodule measuring now 2.1 cm in size presumably metastatic. Dictated by: Dictated on workstation # [id number]
== END ==
LOC: RAD 11:12
PROVIDERS: ATTEND Nurse Practitioner Adult Health
DX: R91.8 Other nonspecific abnormal finding of lung field (principal); E27.9 Disorder of adrenal gland, unspecified; R59.0 Localized enlarged lymph nodes; C34.32 Malignant neoplasm of lower lobe, left bronchus or lung
CPT/HCPCS: 70491; 71260; 74160

== ENCOUNTER → 2017-06-29 | Outpatient (CLI) | payer MEDICARE, OTHER ==
[~2017-06-29] MED LIST changes: -AMOX500T2 PO; -BARIUM SUSPENSION 2.1% (VANILLA SILQ) 450 ML PO ONE; -BENZ-13 PO; -CATHETER FLUSH 10 ML SYR IV PRN; -CEFD300C3 PO; -DOXY100C42 PO; -GUAI237L82 PO; -IOHEXOL 350 MG/ML 100 ML (OMNIPAQUE 350) VIAL IV ONE; -METH4TAB PO; +METO-270 PO; -METO-387 PO; -MONT10TA24 PO; -OLME20TA24 PO; -ONDA4TAB8 PO; -SERT100T8 PO; -[UNRECOGNIZED DRUG - CODE] PO
[2017-06-29 14:55] LABS: BASOPHILS % (AUTO) 0 % (0-10); EOSINOPHILS # (AUTO) 0.2 10^3/uL (0.0-0.3); EOSINOPHILS % (AUTO) 2 % (0-10); LYMPHOCYTES # (AUTO) 0.8 X 10^3 (1.0-4.0); LYMPHOCYTES % (AUTO) 7 % (12-44); MEAN CORPUSCULAR HEMOGLOBIN 31 PG (25-34); MEAN CORPUSCULAR HGB CONC 34 G/DL (32-36); MEAN CORPUSCULAR VOLUME 93 FL (80-99); MEAN PLATELET VOLUME 9.4 FL (7.4-10.4); MONOCYTES # (AUTO) 0.4 X 10^3 (0.0-1.0); MONOCYTES % (AUTO) 4 % (0-12); NEUTROPHILS # (AUTO) 9.3 X 10^3 (1.8-7.8); NEUTROPHILS % (AUTO) 87 % (42-75); PLATELET COUNT 303 10^3/uL (130-400); RED BLOOD COUNT 4.33 10^6/uL (4.35-5.85); RED CELL DISTRIBUTION WIDTH 12.8 % (10.0-14.5); WHITE BLOOD COUNT 10.7 10^3/uL (4.3-11.0)
[2017-06-29 15:02] LABS: BILIRUBIN,URINE NEGATIVE (NEGATIVE); KETONES,URINE NEGATIVE (NEGATIVE); LEUKOCYTE ESTERASE ,URINE 2+ (NEGATIVE); NITRITE,URINE NEGATIVE (NEGATIVE); PH,URINE 6.5 (5-9); PROTEIN,URINE NEGATIVE (NEGATIVE); UROBILINOGEN,URINE NORMAL (NORMAL)
[2017-06-29 15:14] LABS: ALBUMIN 3.3 GM/DL (3.2-4.5); BILIRUBIN,TOTAL 0.3 MG/DL (0.1-1.0); CALCIUM 8.1 MG/DL (8.5-10.1); CREATININE SERUM 0.98 MG/DL (0.60-1.30); POTASSIUM 3.8 MMOL/L (3.6-5.0)
[2017-06-29 15:17] LABS: BAND NEUTROPHILS 2 %; BASOPHILS % (MANUAL) 0 %; EOSINOPHILS % (MANUAL) 0 %; LYMPHOCYTES % (MANUAL) 8 %; NEUTROPHILS % (MANUAL) 88 %
== END ==
LOC: LAB 14:34
PROVIDERS: ATTEND Family Medicine
DX: R31.9 Hematuria, unspecified (principal); R53.1 Weakness
CPT/HCPCS: 36415; 80053; 81000; 85007; 85025; 85027; 87088

== ENCOUNTER → 2017-06-30 | Outpatient (CLI) | payer MEDICARE, OTHER ==
[~2017-06-30] MED LIST changes: +AMOX500T2 PO; +BENZ-13 PO; +CEFD300C3 PO; +DOXY100C42 PO; +GUAI237L82 PO; +METH4TAB PO; -METO-270 PO; +METO-387 PO; +MONT10TA24 PO; +OLME20TA24 PO; +ONDA4TAB8 PO; +SERT100T8 PO; +[UNRECOGNIZED DRUG - CODE] PO
--- NOTE | 2017-06-30 14:00 | Diagnostic Imaging Report ---
EXAMINATION: PA and lateral chest at 01:11 p.m. INDICATION: Congestion. FINDINGS: The heart size is borderline enlarged but unchanged when compared with the prior exam of 05/13/2017. There are a few coarse interstitial densities in the left lung base. These seem similar to the prior exam. There is no sign of failure, pneumonia, or pleural effusion to suggest an acute abnormality. The mediastinum is not widened. The osseous structures are intact. IMPRESSION: There are mild chronic changes involving the left lung base. There is no evidence for an acute cardiopulmonary abnormality however. Dictated by: Dictated on workstation # [id number]
== END ==
LOC: RAD 12:35
PROVIDERS: ATTEND Family Medicine
DX: R05 Cough (principal)
CPT/HCPCS: 71020

== ENCOUNTER 2017-07-04 09:16 | Emergency (ER) | payer MEDICARE, OTHER ==
[~2017-07-04] VITALS: Ht 157.5 cm; Wt 77.1 kg
[~2017-07-04 09:16] MED LIST changes: -AMOX500T2 PO; -BENZ-13 PO; -CEFD300C3 PO; -DOXY100C42 PO; -GUAI237L82 PO; -METH4TAB PO; +METO-270 PO; -METO-387 PO; -MONT10TA24 PO; -OLME20TA24 PO; -ONDA4TAB8 PO; -SERT100T8 PO; -[UNRECOGNIZED DRUG - CODE] PO
--- OUTSIDE RECORDS SUMMARY | 2017-07-04 09:21 | XMS REPORT | Clinical Summary ---
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 If you do not see the information that you expected, contact Release of Information in the Health Information Management department at [phone] for further assistance in locating additional records.[facility] Allergies Active Allergy Reactions Severity Noted Date Comments Levofloxacin UNKNOWN Low 02/02/2017 Current Medications Prescription Sig. Disp. Refills Start End Date Status Date celecoxib (CELEBREX) 200 Take 200 mg by mouth Active mg capsule daily. fluoxetine (PROZAC) 20 mg Take 20 mg by mouth twice Active capsule daily. zolpidem (AMBIEN) 5 mg Take 5 mg by mouth at Active tablet bedtime as needed for Sleep. metoprolol XL (TOPROL XL) Take 25 mg by mouth Active 25 mg extended release daily. tablet Active Problems Problem Noted Date Adenocarcinoma of right lung (HCC) 02/02/2017 Overview: This is 71 year old female who is non smoker presented to local primary care physician with exertional dyspnea, She had CT chest which showed enlarged lung mass. She underwent EBUS for diagnosis which showed adenocarcinoma. She had supraclavicular node core biopsy for molecular tests. PET Scan- (01/05/2017) - 2.4 cm let lower lung nodule with SUV 13.7, Left hilar mass SUV 11.6, Pre carinal and right paratracheal hypermetabolic Adenopathy,Superior/ anterior mediastinal and right paratracheal adenopathy, Supraclavicular adenopathy. Pathology- Adenocarcinoma, Diffuse TTF 1 positive. , EGFR mutation not present. ALK, ROS-1 and PDL1 ordered But pending. Last Assessment & Plan: She is here for medical oncology consultation today. She also has appointment with Dr. Boben John tomorrow for medical oncology care locally. Pathology with TTF 1 positive adenocarcinoma consistent with Lung primary in absence of any other visible primary on PET report and images. EGFR negative but ALK and ROS -1 pending. I would like to see PDL1 as well before making treatment plan as she is relatively stable to wait another week. If one of the mutation, translocation is positive, I recommend oral TKI accordingly. If PDL1 TPS is >50%, will be eligible for standard FDA approved therapy with Pembrolizumab. If she is negative on above pathology, will be candidate for standard chemotherapy with [place] and Pemetrexed. She will review with Dr. Lopez, will revisit here as needed in future. Family History Medical History Relation Name Comments Coronary Artery Disease Brother Heart Disease Brother Coronary Artery Disease Father High Cholesterol Father Hypertension Father Arthritis-osteo Mother Arthritis-rheumatoid Mother Heart Disease Mother Heart Disease Sister High Cholesterol Sister Hypertension Sister Relation Name Status Comments Brother Father Mother Sister Social History Tobacco Use Types Packs/Day Years Used Date Passive Smoke Exposure - Never Smoker Smokeless Tobacco: Never Used Alcohol Use Drinks/Week oz/Week Comments No Sex Assigned at Date Recorded Not on file Last Filed Vital Signs Vital Sign Reading Time Taken Blood Pressure 214/67 02/02/2017 9:47 AM CDT Pulse 54 02/02/2017 9:47 AM CDT Temperature 36.4 C (97.5 F) 02/02/2017 9:47 AM CDT Respiratory Rate 18 02/02/2017 9:47 AM CDT Oxygen Saturation 97% 02/02/2017 9:47 AM CDT Inhaled Oxygen - - Concentration Weight 80.5 kg (177 lb 6.4 oz) 02/02/2017 9:47 AM CDT Height 157.5 cm (5' 2") 02/02/2017 9:47 AM CDT Body Mass Index 32.45 02/02/2017 9:47 AM CDT Plan of Treatment Health Maintenance Due Date Last Done Comments PHYSICAL (COMPREHENSIVE) 1950 EXAM PERTUSSIS VACCINE 1954 TETANUS VACCINE 1960 BREAST CANCER SCREENING 1983 COLORECTAL CANCER 1993 SCREENING SHINGLES VACCINE 2003 OSTEOPOROSIS SCREENING 2008 PREVNAR/PNEUMOVAX (#1) 2008 INFLUENZA VACCINE 06/25/2017 Results Not on filefrom Last 3 Months
[2017-07-04] MEDS ORDERED: OLME20TA24 PO (10:15)
[2017-07-04] MEDS ORDERED: SERT100T8 PO (10:15)
[2017-07-04] MEDS ORDERED: MONT10TA24 PO (10:15)
[2017-07-04] MEDS ORDERED: AMOX500T2 PO (10:15)
[2017-07-04] MEDS ORDERED: DOXY100C42 PO (10:15)
[2017-07-04] MEDS ORDERED: [UNRECOGNIZED DRUG - CODE] PO (10:15)
[2017-07-04] MEDS ORDERED: CEFD300C3 PO (10:15)
[2017-07-04] MEDS ORDERED: RT-ALBUTEROL/IPRATROPIUM 3 ML (DUONEB) VIAL INH ONE (10:30)
[2017-07-04 10:33] LABS: BASOPHILS # (AUTO) 0.1 10^3/uL (0.0-0.1); BASOPHILS % (AUTO) 0 % (0-10); EOSINOPHILS # (AUTO) 0.7 10^3/uL (0.0-0.3); EOSINOPHILS % (AUTO) 5 % (0-10); LYMPHOCYTES # (AUTO) 1.7 X 10^3 (1.0-4.0); LYMPHOCYTES % (AUTO) 12 % (12-44); MEAN CORPUSCULAR HEMOGLOBIN 31 PG (25-34); MEAN CORPUSCULAR HGB CONC 33 G/DL (32-36); MEAN CORPUSCULAR VOLUME 93 FL (80-99); MEAN PLATELET VOLUME 9.8 FL (7.4-10.4); MONOCYTES # (AUTO) 1.2 X 10^3 (0.0-1.0); MONOCYTES % (AUTO) 8 % (0-12); NEUTROPHILS # (AUTO) 10.7 X 10^3 (1.8-7.8); NEUTROPHILS % (AUTO) 75 % (42-75); PLATELET COUNT 237 10^3/uL (130-400); RED BLOOD COUNT 4.35 10^6/uL (4.35-5.85); WHITE BLOOD COUNT 14.4 10^3/uL (4.3-11.0)
[2017-07-04 10:49] LABS: ANION GAP 10 MMOL/L (5-14); BLOOD UREA NITROGEN 10 MG/DL (7-18); BUN/CREATININE RATIO 13; CALCIUM 8.3 MG/DL (8.5-10.1); CARBON DIOXIDE 22 MMOL/L (21-32); CHLORIDE 108 MMOL/L (98-107); CREATININE SERUM 0.75 MG/DL (0.60-1.30); GFR ESTIMATED > 60; GLUCOSE 99 MG/DL (70-105); POTASSIUM 3.9 MMOL/L (3.6-5.0); SODIUM 140 MMOL/L (135-145)
[2017-07-04 11:01] LABS: BASOPHILS % (MANUAL) 1 %; EOSINOPHILS % (MANUAL) 3 %; LYMPHOCYTES % (MANUAL) 13 %; NEUTROPHILS % (MANUAL) 74 %
--- NOTE | 2017-07-04 11:01 | Diagnostic Imaging Report ---
EXAM: CHEST PA/LAT (2 VIEW) INDICATION: Lung cancer. COMPARISON: Chest radiograph 06/30/2017. FINDINGS: Normal heart size and pulmonary vascularity. Mild atelectasis or infiltrate in the left lung base. Tiny left pleural effusion or thickening is new since the prior exam. No pneumothorax. No acute osseous findings. Cholecystectomy clips. IMPRESSION: Tiny left pleural effusion or thickening is new since the prior exam. Persistent atelectasis or infiltrate left lung base. Dictated by: Dictated on workstation # [id number]
[2017-07-04] MEDS ORDERED: fentaNYL INJECTION 100 MCG/2 ML AMP IVP STA (11:26)
[2017-07-04] MEDS ORDERED: NS 100 ML (IVPB) BAG IV ONE (11:30)
[2017-07-04] MEDS ORDERED: methylPREDNISolone 125 MG (Solu-MEDROL) VIAL IVP ONE (11:30)
[2017-07-04] MEDS ORDERED: IOHEXOL 350 MG/ML 150 ML (OMNIPAQUE 350) VIAL IV ONE (11:30)
--- NOTE | 2017-07-04 12:18 | Diagnostic Imaging Report ---
PROCEDURE: CT head and maxillofacial without contrast. TECHNIQUE: Multiple contiguous axial images were obtained through the head and facial bones without the use of intravenous contrast. INDICATION: Lung cancer. Pressure and fullness in back of head. COMPARISON: MRI brain without and with IV contrast 02/04/2017. FINDINGS: No intracranial hemorrhage, mass effect, hydrocephalus or extraaxial fluid collections. Low attenuation changes in the deep white matter correspond to the presumed leukoaraiosis on the prior MRI. No new suspicious intracranial CT findings. The visualized paranasal sinuses and mastoids are clear. Osseous structures are intact. No suspicious osteoblastic or lytic lesions. IMPRESSION: No acute intracranial CT findings. No suspicious osseous findings. Dictated by: Dictated on workstation # [id number]
--- NOTE | 2017-07-04 12:23 | Diagnostic Imaging Report ---
PROCEDURE: CT neck soft tissue with contrast. TECHNIQUE: Multiple contiguous axial images were obtained through the neck after the administration of contrast. INDICATION: Neck pain x10 days. History of lung CA, with metastasis. Comparison with CT neck from 06/03/2017. FINDINGS: There is good opacification of the cervical vessels following IV contrast. The previously measured supraclavicular lymph node anterior to the carotid artery and laterally on the right has increased in size. This now measures approximately 3.5 x 2.4 cm. This previously measured 2.5 x 1.5 cm. The left cervical chain lymph node at the same level now measures 2.7 x 1.8 cm. This previously measured 10 x 10 mm. There is a lymph node in the anterior mediastinum posterior to the manubrium which now measures 1.8 cm in diameter. The parapharyngeal tissue planes are well-preserved. The parotid and submandibular glands appear normal. The strap muscles show good preservation of tissue planes. There are multiple scattered lymph nodes along the cervical chain. These do not appear significantly different in size or appearance than previous exam. Bone windows show no evidence of destructive bony lesions. Degenerative cervical changes are noted of the discs and facets. IMPRESSION: 1. There has been significant increase in cervical chain adenopathy as described with largest lymph node present supraclavicular region on the right measuring 3.5 x 2.4 cm. Also superior mediastinal lymph node now present. 2. Degenerative changes noted along the cervical spine with no destructive bony lesions demonstrated. Dictated by: Dictated on workstation # [id number]
--- NOTE | 2017-07-04 12:33 | Diagnostic Imaging Report ---
PROCEDURE: CT angiography of the chest with contrast. TECHNIQUE: Multiple contiguous axial images were obtained through the chest after uneventful bolus administration of intravenous contrast. Reconstructed CTA MIP acquisitions were also performed. INDICATION: Stage III lung cancer with metastases. Comparison with 06/03/2017 FINDINGS: There are multiple enlarged lymph nodes in the mediastinum. The lymph node along the AP window measures approximately 15 mm. There is mass encasing the left hilum and extending into the subcarinal region. This does surround the pulmonary artery to the left upper lobe which is mildly compressed. No filling defects are demonstrated to indicate pulmonary emboli. Measuring the left hilar adenopathy at the same area previously measured now shows mass measuring approximately 3.2 x 2.7 cm increasing from 2.1 x 1.4 cm. The mass density measured inferiorly in the left lung also is increased in size now measuring approximately 3.2 x 2.2 cm. This previously measured 1.6 x 1.2 cm. No significant pleural effusions noted. No pericardial effusion. The left adrenal gland mass now measures 2.2 x 1.5 cm having increased slightly in size. There has been enlargement of the right adrenal gland with the upper crura measuring approximately 2.2 x 1 cm today. No definite destructive bony lesions demonstrated. IMPRESSION: 1. Adverse findings with increasing mediastinal and hilar adenopathy. Also increasing size of left lower lobe mass. 2. There is encasement of the left upper lobe pulmonary artery which is significantly stenotic though no evidence of pulmonary embolus at this time. 3. Finding consistent with bilateral adrenal metastasis increasing in size. Dictated by: Dictated on workstation # [id number]
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
[2017-07-04] MEDS ORDERED: METH4TAB PO (13:00)
[2017-07-04] MEDS ORDERED: ONDA4TAB8 PO (13:00)
[2017-07-04] MEDS ORDERED: BENZ-13 PO (13:00)
[2017-07-04] MEDS ORDERED: GUAI237L82 PO (13:02)
[2017-07-04] MEDS ORDERED: morphine INJ 10 MG/ML 1ML (SYR OR VIAL) IVP STA (13:03)
[2017-07-04 13:13] VITALS: BP 149/77
== END 2017-07-04 13:13 | disposition home or self-care (01) ==
LOC: EDUNIT# 09:16 → ER 09:18
DX: J20.9 Acute bronchitis, unspecified (principal); C34.90 Malignant neoplasm of unspecified part of unspecified bronchus or lung; C79.89 Secondary malignant neoplasm of other specified sites; R51 Headache; M54.2 Cervicalgia; F41.9 Anxiety disorder, unspecified; F32.9 Major depressive disorder, single episode, unspecified; G47.9 Sleep disorder, unspecified; M47.9 Spondylosis, unspecified; I10 Essential (primary) hypertension; Z90.710 Acquired absence of both cervix and uterus; Z82.49 Family history of ischemic heart disease and other diseases of the circulatory system
CPT/HCPCS: 36415; 70450; 70486; 70491; 71020; 71275; 80048; 83605; 85007; 85027; 87040; 94640; 96374; 96375

== ENCOUNTER 2017-07-08 11:05 | Outpatient (RCR) | payer MEDICARE, OTHER ==
[2017-05-13 14:12] LABS: BASOPHILS % (AUTO) 1 % (0-10); EOSINOPHILS # (AUTO) 0.2 10^3/uL (0.0-0.3); EOSINOPHILS % (AUTO) 4 % (0-10); LYMPHOCYTES # (AUTO) 1.5 X 10^3 (1.0-4.0); LYMPHOCYTES % (AUTO) 27 % (12-44); MEAN CORPUSCULAR HEMOGLOBIN 31 PG (25-34); MEAN CORPUSCULAR HGB CONC 34 G/DL (32-36); MEAN CORPUSCULAR VOLUME 92 FL (80-99); MEAN PLATELET VOLUME 8.9 FL (7.4-10.4); MONOCYTES # (AUTO) 0.7 X 10^3 (0.0-1.0); MONOCYTES % (AUTO) 12 % (0-12); NEUTROPHILS # (AUTO) 3.1 X 10^3 (1.8-7.8); NEUTROPHILS % (AUTO) 57 % (42-75); PLATELET COUNT 328 10^3/uL (130-400); RED BLOOD COUNT 3.99 10^6/uL (4.35-5.85); RED CELL DISTRIBUTION WIDTH 13.7 % (10.0-14.5); WHITE BLOOD COUNT 5.5 10^3/uL (4.3-11.0)
[2017-05-13 15:42] LABS: ALANINE AMINOTRANSFERASE 68 U/L (0-55); ALBUMIN 3.3 GM/DL (3.2-4.5); ANION GAP 8 MMOL/L (5-14); ASPARTATE AMINO TRANSFERASE 43 U/L (5-34); BILIRUBIN,TOTAL 0.3 MG/DL (0.1-1.0); BLOOD UREA NITROGEN 14 MG/DL (7-18); BUN/CREATININE RATIO 16; CALCIUM 8.5 MG/DL (8.5-10.1); CARBON DIOXIDE 24 MMOL/L (21-32); CHLORIDE 109 MMOL/L (98-107); CREATININE SERUM 0.85 MG/DL (0.60-1.30); GFR ESTIMATED > 60; GLUCOSE 86 MG/DL (70-105); POTASSIUM 3.9 MMOL/L (3.6-5.0); SODIUM 141 MMOL/L (135-145); TOTAL PROTEIN 6.1 GM/DL (6.4-8.2)
--- NOTE | 2017-05-13 17:39 | Diagnostic Imaging Report ---
INDICATION: History of lung cancer. TECHNIQUE: Two-view chest at 2:17 p.m. CORRELATION STUDY: 03/04/2017. FINDINGS: Heart size is borderline stable. Vasculature and mediastinal configuration are unchanged. The previously noted density over the left lung base has improved. There are minimal residual densities in this area. Right lung is unchanged. Trace pleural effusions versus pleural thickening. Likely cholecystectomy clips in the right upper quadrant. IMPRESSION: 1. Previously noted density of the left lung base has improved. Trace residual densities in these areas are present. No new abnormality. Dictated by: Dictated on workstation # [id number]
[2017-06-10 14:42] LABS: BASOPHILS # (AUTO) 0.1 10^3/uL (0.0-0.1); BASOPHILS % (AUTO) 1 % (0-10); EOSINOPHILS # (AUTO) 0.2 10^3/uL (0.0-0.3); EOSINOPHILS % (AUTO) 4 % (0-10); LYMPHOCYTES # (AUTO) 1.4 X 10^3 (1.0-4.0); LYMPHOCYTES % (AUTO) 23 % (12-44); MEAN CORPUSCULAR HEMOGLOBIN 31 PG (25-34); MEAN CORPUSCULAR HGB CONC 33 G/DL (32-36); MEAN CORPUSCULAR VOLUME 93 FL (80-99); MEAN PLATELET VOLUME 9.6 FL (7.4-10.4); MONOCYTES # (AUTO) 0.5 X 10^3 (0.0-1.0); MONOCYTES % (AUTO) 8 % (0-12); NEUTROPHILS # (AUTO) 3.7 X 10^3 (1.8-7.8); NEUTROPHILS % (AUTO) 63 % (42-75); PLATELET COUNT 277 10^3/uL (130-400); RED CELL DISTRIBUTION WIDTH 13.1 % (10.0-14.5); WHITE BLOOD COUNT 5.9 10^3/uL (4.3-11.0)
[2017-06-10 14:59] LABS: ALANINE AMINOTRANSFERASE 61 U/L (0-55); ALBUMIN 3.1 GM/DL (3.2-4.5); ANION GAP 4 MMOL/L (5-14); ASPARTATE AMINO TRANSFERASE 44 U/L (5-34); BILIRUBIN,TOTAL 0.3 MG/DL (0.1-1.0); BLOOD UREA NITROGEN 12 MG/DL (7-18); BUN/CREATININE RATIO 15; CALCIUM 8.2 MG/DL (8.5-10.1); CARBON DIOXIDE 25 MMOL/L (21-32); CHLORIDE 110 MMOL/L (98-107); GFR ESTIMATED > 60; GLUCOSE 91 MG/DL (70-105); POTASSIUM 4.1 MMOL/L (3.6-5.0); SODIUM 139 MMOL/L (135-145); TOTAL PROTEIN 5.6 GM/DL (6.4-8.2)
[~2017-07-08 11:05] MED LIST changes: +AMOX500T2 PO; +BENZ-13 PO; +CEFD300C3 PO; +DOXY100C42 PO; +GUAI237L82 PO; +METH4TAB PO; +MONT10TA24 PO; +OLME20TA24 PO; +ONDA4TAB8 PO; +SERT100T8 PO; +[UNRECOGNIZED DRUG - CODE] PO
[2017-07-08 14:34] LABS: BASOPHILS % (AUTO) 0 % (0-10); EOSINOPHILS # (AUTO) 0.1 10^3/uL (0.0-0.3); EOSINOPHILS % (AUTO) 1 % (0-10); LYMPHOCYTES # (AUTO) 1.3 X 10^3 (1.0-4.0); LYMPHOCYTES % (AUTO) 7 % (12-44); MEAN CORPUSCULAR HEMOGLOBIN 31 PG (25-34); MEAN CORPUSCULAR HGB CONC 33 G/DL (32-36); MEAN CORPUSCULAR VOLUME 93 FL (80-99); MEAN PLATELET VOLUME 9.5 FL (7.4-10.4); MONOCYTES # (AUTO) 1.2 X 10^3 (0.0-1.0); MONOCYTES % (AUTO) 7 % (0-12); NEUTROPHILS # (AUTO) 14.6 X 10^3 (1.8-7.8); NEUTROPHILS % (AUTO) 85 % (42-75); PLATELET COUNT 246 10^3/uL (130-400); RED CELL DISTRIBUTION WIDTH 12.7 % (10.0-14.5); WHITE BLOOD COUNT 17.2 10^3/uL (4.3-11.0)
[2017-07-08 14:55] LABS: ALBUMIN 3.2 GM/DL (3.2-4.5); BILIRUBIN,TOTAL 0.3 MG/DL (0.1-1.0); CALCIUM 8.3 MG/DL (8.5-10.1); CREATININE SERUM 0.92 MG/DL (0.60-1.30); POTASSIUM 3.9 MMOL/L (3.6-5.0); TOTAL PROTEIN 5.7 GM/DL (6.4-8.2)
== END 2017-07-24 | disposition home or self-care (01) ==
LOC: ONC 11:05
PROVIDERS: ATTEND Internal Medicine Hematology & Oncology
DX: C34.32 Malignant neoplasm of lower lobe, left bronchus or lung (principal); C77.1 Secondary and unspecified malignant neoplasm of intrathoracic lymph nodes; I10 Essential (primary) hypertension; Z79.899 Other long term (current) drug therapy
CPT/HCPCS: 36415; 71020; 80053; 85025; 99213